=== PATIENT | male | born 1950 | race Caucasian/White ===

== ENCOUNTER 2022-04-28 05:05 | Day surgery (SDC) | payer OTHER, BC ==
[2022-04-26 11:40] VITALS: BMI 24.5
[2022-04-28] MEDS ORDERED: LIDOCAINE HCL 1%, 10 MG/ML (20ML VIAL) ONE (14:13)
[2022-04-28] MEDS ORDERED: HEPARIN NA (PORCINE) 5,000 UNITS/ML 1ML VIAL ONE (14:13)
[2022-04-28] MEDS ORDERED: MIDAZOLAM HCL 2 MG/2 ML SINGLE DOSE VIAL ONE ×2 (15:26)
[2022-04-28] MEDS ORDERED: PAPAVERINE HCL 30 MG/1 ML 10 ML VIAL NR ONE (15:28)
[2022-04-28] MEDS ORDERED: PROPOFOL 20 ML ONE ×4 (15:34→15:38)
[2022-04-28] MEDS ORDERED: ceFAZolin SODIUM 1 GM VIAL IVPB ONE (15:49)
[2022-04-28] MEDS ORDERED: LIDOCAINE HCL 1%, 10 MG/ML (20ML VIAL) NR ONE (17:23)
[2022-04-28] MEDS ORDERED: POVIDONE-IODINE OINTMENT 10% - 28.4 GM TUBE TP ONE (17:23)
[2022-04-28] MEDS ORDERED: ONDANSETRON 4 MG/2 ML VIAL IVPUSH PRN (17:40)
[2022-04-28] MEDS ORDERED: oxyCODONE HCL 5 MG TABLET PO PRN (17:40)
[2022-04-28 18:34] VITALS: RESP 18
[2022-04-28 19:07] VITALS: BP 132/76; PULSE 63; TEMP 98
== END 2022-04-28 19:39 | disposition home or self-care (01) ==
LOC: JASU-SURG 05:05
PROVIDERS: ATTEND Surgery
PROC: 03170ZD Bypass Right Brachial Artery to Upper Arm Vein, Open Approach (ICD-10-PCS; principal; 2022-04-28 15:30)
DX: I12.9 Hypertensive chronic kidney disease with stage 1 through stage 4 chronic kidney disease, or unspecified chronic kidney disease (principal)
CPT/HCPCS: 94760; J1644

== ENCOUNTER 2025-01-30 19:14 | Emergency (ER) | payer OTHER, BC ==
[2025-01-30 19:23] VITALS: BP 124/67; PULSE 78; RESP 18; TEMP 98.8; BMI 24.6
[2025-01-30] MEDS ORDERED: BENZONATATE 200 MG CAPSULE PO ONE (20:27)
[2025-01-30] MEDS ORDERED: ALBUTEROL SO4 2.5/IPRATROPIUM 0.5 INH SOL 3 ML VIAL.NEB. NEB ONE (20:27)
[2025-01-30] MEDS: BENZONATATE 200 MG CAPSULE PO ONE (20:44)
[2025-01-30] MEDS: ALBUTEROL SO4 2.5/IPRATROPIUM 0.5 INH SOL 3 ML VIAL.NEB. NEB SCH (20:44)
[2025-01-30 20:53] LABS: ABSOLUTE IMMATURE GRANULOCYTES 0.04 x10^3/uL (0.0-0.031); BASOPHILS # 0.01 x10^3/uL (0.01-0.08); EOSINOPHIL % 1.8 % (0.8-7.0); EOSINOPHILS # 0.13 x10^3/uL (0.04-0.54); HEMATOCRIT 36.7 % (40.1-51.0); HEMOGLOBIN 12.1 g/dL (13.7-17.5); MEAN CELL VOLUME 98.7 fl (79.0-92.2); MEAN PLT VOLUME 9.7 fl (9.4-12.4); MONOCYTE # 0.77 x10^3/uL (0.30-0.82); MONOCYTE % 10.6 % (5.3-12.2); PLATELET COUNT 175 x10^3/uL (163-337); RDW 13.1 % (12.2-16.6)
[2025-01-30 21:12] LABS: POTASSIUM 3.7 mmol/L (3.5-5.1)
[2025-01-30 21:14] LABS: ALBUMIN 3.2 g/dl (3.4-5.0); CALCIUM 9.4 mg/dL (8.5-10.1)
[2025-01-30 21:15] LABS: MAGNESIUM 1.8 mg/dL (1.8-2.4)
[2025-01-30 21:18] LABS: CREATININE 4.8 mg/dL (0.55-1.3); PHOSPHOROUS 3.2 mg/dL (2.5-4.9)
[2025-01-30 21:19] LABS: BILIRUBIN,TOTAL 0.3 mg/dL (0.2-1); TOT PROT 6.8 g/dl (6.4-8.2)
[2025-01-30 21:20] LABS: BLOOD UREA NITROGEN 40.6 mg/dL (7-18)
[2025-01-30] MEDS ORDERED: PSEUDOEPHEDRINE HCL 60 MG TABLET ONE (21:38)
[2025-01-30] MEDS ORDERED: methylPREDNISolone NA SUCC 125 MG/2 ML VIAL ONE (21:38)
[2025-01-30] MEDS: methylPREDNISolone NA SUCC 125 MG/2 ML VIAL IVPB ONE (21:46)
[2025-01-30] MEDS: PSEUDOEPHEDRINE HCL 30 MG TABLET PO ONE (21:46)
== END 2025-01-30 21:48 | disposition home or self-care (01) ==
LOC: JER 19:14
PROC: 3E033GC Introduction of Other Therapeutic Substance into Peripheral Vein, Percutaneous Approach (ICD-10-PCS; principal; 2025-01-30)
PROC: 3E0F7GC Introduction of Other Therapeutic Substance into Respiratory Tract, Via Natural or Artificial Opening (ICD-10-PCS; 2025-01-30)
DX: R09.81 Nasal congestion (principal); R05.9 Cough, unspecified; R06.2 Wheezing; B34.9 Viral infection, unspecified
CPT/HCPCS: 0241U-QW; 36415; 71045-TC-FY; 80053; 83605; 83735; 84100; 84484; 85025; 93005; 93010; 99285-25